=== PATIENT | male | born 1955 | race Caucasian/White ===

== ENCOUNTER 2021-06-14 16:46 | Emergency (ER) | payer OTHER, SELFPAY ==
[2021-06-14 16:51] VITALS: BP 155/95; PULSE 64; RESP 16; TEMP 36.2; O2SAT 98
[2021-06-14] MEDS: TETANUS,DIPHTHERIA,AC PERTUSSIS ADULT (0.5 ML) BOOSTRIX IM (17:14)
--- NOTE | 2021-06-14 17:20 | ED.WOUNDLAC ---
HPI - Wound/Laceration General Chief Complaint: Wound/Laceration Stated Complaint: laceration Time Seen by Provider: 06/14/21 16:54 History of Present Illness HPI narrative: 65-year-old male presents to emergency room with a laceration to his right thumb. Patient states that he dropped a glass vase, and when picking up cut his himself. Tetanus is not up-to-date Related Data Allergies Allergy/AdvReac Type Severity Reaction Status Date / Time Penicillins Allergy Intermediate RASH Unverified 06/14/21 17:27 Review of Systems Review of Systems: CONSTITUTIONAL: Denies fever, chills, or sweats. EYES: Denies visual changes, redness, or discharge. ENT: Denies rhinorrhea, congestion, sore throat, or otalgia. CARDIOVASCULAR: Denies chest pain, palpitations, or edema. RESPIRATORY: Denies cough or dyspnea. GASTROINTESTINAL: Denies abdominal pain, nausea, vomiting, or diarrhea. GENITOURINARY: Denies dysuria or hematuria. SKIN: Denies rash or itching. MUSCULOSKELETAL: Denies back pain, joint pain, or myalgia. NEUROLOGIC: Denies headache, numbness, dizziness, or weakness. PSYCHIATRIC: Denies anxiety or depression. Exam Narrative: GENERAL: Well-appearing, well-nourished, and in no acute distress. HEAD: Normocephalic, atraumatic. EYES: PERRLA and EOMI. ENT: Nares clear, no rhinorrhea or epistaxis. Mucous membranes moist. Oropharynx without tonsillar hypertrophy exudate or other lesions. Bilateral TMs pearly daniels nonbulging NECK: Supple. No adenopathy or masses. No carotid bruits or JVD CHEST: Clear to auscultation. No respiratory distress. No wheezes rales or rhonchi HEART: Regular rate and rhythm. No murmur heard. Normal peripheral pulses. ABDOMEN: Soft, nontender, nondistended, normal active bowel sounds. EXTREMITIES: Normal range of motion. No edema. SKIN: Warm, dry, no rash. 2-1/2 cm laceration to the pad of the right thumb. Full range of motion to the IP joint with no laxity. NEURO: No focal deficits. Alert and oriented x3. PSYCH: Normal mood and affect. Course Vital Signs Vital signs: Vital Signs Temperature 36.2 C L 06/14/21 16:51 Pulse Rate 64 06/14/21 16:51 Respiratory Rate 16 06/14/21 16:51 Blood Pressure 155/95 H 06/14/21 16:51 Pulse Oximetry 98 06/14/21 16:51 Temperature 36.2 C L 06/14/21 16:51 Pulse Rate 64 06/14/21 16:51 Respiratory Rate 16 06/14/21 16:51 Blood Pressure 155/95 H 06/14/21 16:51 Pulse Oximetry 98 06/14/21 16:51 Procedures Laceration Laceration 1: Date: 06/14/21 Time: 17:48 Site: upper extremity (right thumb) Side (If applicable): right Size (cm): 2.5 Description: linear Local Anesthetic: lidocaine 1% Amount of anesthesia used (mL): 3 Pre-repair: wound explored and irrigated ====== Skin Level ====== Skin layer closed with: prolene Size (cm): 5-0 Number of sutures: 5 Technique: simple, interrupted ====== Subcutaneous Layer ====== ====== Muscle Layer ====== ====== Tendon Layer ====== Discharge Plan Discharge Clinical Impression: Laceration Patient Disposition: Home, Self-Care Condition: Stable Instructions: Antibiotic Form Additional Instructions: Sutures to be removed in 10 days. Observe for signs of infection which include erythema, pain, swelling, discharge. Take antibiotics as prescribed. Prescriptions: New clindamycin HCl 300 mg capsule 300 mg PO Q8H Qty: 30 RF: 0 Follow-up/Referrals: Alen,Cameron Alcantara MD [Primary Care Provider] - Time of Disposition: 17:47
--- NOTE | 2021-07-04 11:44 | PC.NURSE ---
LATE ENTRY This note is being entered to document information to the patient's record. The following information was omitted on [06/14/2021], by [Francheska Murphy RN]. Confirm error on location location should be Right thumb for injury.
== END 2021-06-14 17:54 | disposition home or self-care (01) ==
PROVIDERS: Emergency Provider Nurse Practitioner Family; PCP Internal Medicine
DX: S61.011A Laceration without foreign body of right thumb without damage to nail, initial encounter (principal); Z23 Encounter for immunization; W25.XXXA Contact with sharp glass, initial encounter
CPT/HCPCS: 12001; 90471; 90715; 99283

== ENCOUNTER 2022-08-10 18:15 | Emergency (ER) | payer OTHER, SELFPAY ==
--- NOTE | ~2022-08-10 | XR_ITS ---
EXAMINATION: XR knee LT min 4V DATE: 08/10/2022 19:26 INDICATION: Left knee swelling. Fall. TECHNIQUE: 4 views of left knee were obtained. COMPARISON: None. FINDINGS: Bone alignment is normal. No fracture. There is mild osteoarthritis of lateral and patellof emoral compartments. No knee joint effusion. There is prepatellar soft tissue swelling. IMPRESSION: 1. Mild left knee osteoarthritis. Reviewed, dictated and finalized at location A.
[2022-08-10 18:16] VITALS: BP 170/92; PULSE 74; RESP 16; TEMP 36.8; O2SAT 99
--- NOTE | 2022-08-10 19:47 | ED.GENADULT ---
HPI - General Adult General Chief complaint: Extremity Injury, Lower Stated complaint: left knee injury Time Seen by Provider: 08/10/22 19:20 History of Present Illness HPI narrative: 66-year-old male presented to the emergency department for evaluation of multiple abrasions and left knee pain. Patient states he was [place] [employer] when he fell resulting in the abrasions and injury. Patient denies striking head denies loss of consciousness. Patient does have an abrasion to his right arm left knee and right knee. Wounds were cleansed and dressed prior to arrival. Patient does have prior history of bilateral meniscus repair. Patient states he does have increased pain with weightbearing on the left knee. Related Data Allergies Allergy/AdvReac Type Severity Reaction Status Date / Time Penicillins Allergy Intermediate RASH Unverified 08/10/22 19:49 Review of Systems Review of Systems: All systems reviewed & are unremarkable except as noted in HPI and below Exam Narrative: APPEARANCE: Well appearing, no pain, no distress, well-nourished. HEAD: normocephalic, atraumatic. EYES: PERRLA/EOMI, conjunctivae clear. NOSE: Normal no drainage NECK: Supple. No adenopathy, no masses. RESPIRATORY: Airway patent, respirations nonlabored. Clear to auscultation bilaterally, no rales, rhonchi, wheezing. CARDIOVASCULAR: Regular rate and rhythm without murmurs rubs or gallops. ABDOMINAL: Soft, nontender, nondistended, normal bowel sounds MUSCULOSKELETAL: Moves all extremities. Left knee effusion with no deformity. Neurovascular intact NEURO: Alert. Cranial nerves II through XII intact. Good gait. Good coordination SKIN: Abrasions to right elbow, left knee and right knee Course Course Emergency Course: 66-year-old male presented to the ED for evaluation multiple abrasions and knee pain after a fall while [place] the bases. X-ray was negative for acute fracture or dislocation. Patient evaluated the results of the work-up and plan for treatment. All questions and concerns were addressed. Vital Signs Vital signs: Vital Signs Temperature 98.3 F 08/10/22 18:16 Pulse Rate 74 08/10/22 18:16 Respiratory Rate 16 08/10/22 18:16 Blood Pressure 170/92 H 08/10/22 18:16 Pulse Oximetry 99 08/10/22 18:16 Oxygen Delivery Room Air 08/10/22 18:16 Temperature 98.3 F 08/10/22 18:16 Pulse Rate 74 08/10/22 18:16 Respiratory Rate 16 08/10/22 18:16 Blood Pressure 170/92 H 08/10/22 18:16 Pulse Oximetry 99 08/10/22 18:16 Oxygen Delivery Room Air 08/10/22 18:16 Medical Decision Making Vital Signs Vital Signs: Vital Signs Temperature 98.3 F 08/10/22 18:16 Pulse Rate 74 08/10/22 18:16 Respiratory Rate 16 08/10/22 18:16 Blood Pressure 170/92 H 08/10/22 18:16 Pulse Oximetry 99 08/10/22 18:16 Oxygen Delivery Room Air 08/10/22 18:16 Temperature 98.3 F 08/10/22 18:16 Pulse Rate 74 08/10/22 18:16 Respiratory Rate 16 08/10/22 18:16 Blood Pressure 170/92 H 08/10/22 18:16 Pulse Oximetry 99 08/10/22 18:16 Oxygen Delivery Room Air 08/10/22 18:16 Discharge Plan Discharge Clinical Impression: Acute internal derangement of knee, Abrasion Patient Disposition: Home, Self-Care Condition: Stable Instructions: Antibiotic Form, Crutch Instructions (ED), Contusion in Adults (ED), Abrasion (ED), Knee Pain (ED), Knee Immobilizer (ED) Additional Instructions: Knee immobilizer as directed. Crutches for limited weightbearing. Tylenol and ibuprofen for pain control. Ice and elevate the affected knee. Have close follow-up with your primary care physician. If you have any worsening symptoms or if you have any questions or concerns then please call or return to the emergency department. Prescriptions: No Action clindamycin HCl 300 mg capsule 300 mg PO Q8H Qty: 30 0RF Follow-up/Referrals: Alen,Cameron Alcantara MD [Primary Care Provider] -
== END 2022-08-10 20:32 | disposition home or self-care (01) ==
PROVIDERS: Emergency Provider Emergency Medicine; PCP Internal Medicine
DX: M23.92 Unspecified internal derangement of left knee (principal); S80.212A Abrasion, left knee, initial encounter; S80.211A Abrasion, right knee, initial encounter; S50.311A Abrasion of right elbow, initial encounter; M17.12 Unilateral primary osteoarthritis, left knee; W18.39XA Other fall on same level, initial encounter; Y93.02 Activity, running
CPT/HCPCS: 73564; 99283